=== PATIENT | male | born 2000 ===

== ENCOUNTER 2021-02-02 23:18 | Emergency (ER) | payer SELFPAY ==
[2021-02-03] MEDS ORDERED: IBUPROFEN 400 MG TAB ONE (01:13)
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
[2021-02-03 01:39] VITALS: BP 135/85; TEMP 98.5; O2SAT 99
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
== END 2021-02-03 01:33 | disposition home or self-care (01) ==
LOC: ER 23:18
DX: S16.1XXA Strain of muscle, fascia and tendon at neck level, initial encounter (principal); V49.40XA Driver injured in collision with unspecified motor vehicles in traffic accident, initial encounter
CPT/HCPCS: 72040; 99283